=== PATIENT | female | born 1935 | race Caucasian/White ===

== ENCOUNTER 2016-11-10 16:51 | Emergency (ER) | payer MEDICARE, OTHER ==
[~2016-11-10] VITALS: Ht 167.6 cm; Wt 69.9 kg
[2016-11-10] MEDS ORDERED: DETR2CAP PO (17:12)
[2016-11-10] MEDS ORDERED: ASPI81TA85 PO (17:12)
[2016-11-10] MEDS ORDERED: FISH500C PO (17:12)
[2016-11-10] MEDS ORDERED: BIOT1CAP2 PO (17:12)
[2016-11-10] MEDS ORDERED: LISI30TA4 PO (17:12)
[2016-11-10] MEDS ORDERED: [UNRECOGNIZED DRUG - CODE] IM (17:12)
[2016-11-10] MEDS ORDERED: SIMV10TA2 PO (17:12)
[2016-11-10] MEDS ORDERED: LIDOCAINE 1% MDV 20ML VIAL As Ordered ONE (18:14)
[2016-11-10] MEDS ORDERED: LIDOCAINE 1% MDV 20ML VIAL SC ONE (18:30)
--- NOTE | 2016-11-10 19:28 | REP ---
RIGHT TIBIA/FIBULA: HISTORY: Pain after trauma. COMPARISON: 11/07/2015 There has been no significant change from the prior exam. Degenerative changes are seen involving the knee and ankle. There is no evidence of acute fracture. IMPRESSION: Stable chronic changes. Signed by Valdemar Henning DO 11/10/2016 07:38 P
[2016-11-10 19:58] VITALS: BP 146/67
== END 2016-11-10 20:00 | disposition home or self-care (01) ==
LOC: M ED 19:48
DX: S81.811A Laceration without foreign body, right lower leg, initial encounter (principal); X58.XXXA Exposure to other specified factors, initial encounter; Y92.099 Unspecified place in other non-institutional residence as the place of occurrence of the external cause; Y93.9 Activity, unspecified; Y99.9 Unspecified external cause status; I10 Essential (primary) hypertension; M94.20 Chondromalacia, unspecified site; E21.3 Hyperparathyroidism, unspecified; G25.81 Restless legs syndrome; Z79.82 Long term (current) use of aspirin; Z79.899 Other long term (current) drug therapy; Z88.1 Allergy status to other antibiotic agents

== ENCOUNTER 2021-08-17 16:10 | Inpatient (IN) | payer MEDICARE, OTHER ==
[~2021-08-17] VITALS: Ht 154.9 cm; Wt 47.6 kg
[~2021-08-17 16:10] MED LIST: ASPI81TA86 PO; BIOT1CAP2 PO; DETR2CAP PO; FISH500C PO; HEPARIN SOD (PORCINE) 5000UNITS/ML 1ML VIAL/SYRINGE SC SCH; LISI30TA4 PO; SIMV10TA21 PO; [UNRECOGNIZED DRUG - CODE] IM
[2021-08-17 18:13] LABS: BASO % 0.3 % (0.0-1.0); EOS # 0.1 10^3/uL (0.0-0.5); EOS % 0.7 % (0.0-3.0); HEMATOCRIT 46.2 % (36.0-47.0); HEMOGLOBIN 14.8 g/dl (12.0-15.5); LYMPH # 1.7 10^3/uL (1.5-5.0); LYMPH % 18.9 % (24.0-44.0); MEAN CORPUSCULAR HEMOGLOBIN 30.7 pg (27.0-33.0); MEAN CORPUSCULAR VOLUME 95.9 fl (80.0-96.0); MONO # 0.8 10^3/uL (0.0-0.8); MONO % 9.2 % (2.0-8.0); NEUTROPHILS # 6.2 10^3/uL (1.5-8.5); NEUTROPHILS % 70.3 % (36.0-66.0); PLATELET COUNT, AUTOMATED 399 10^3/uL (150-450); RED BLOOD COUNT 4.82 10^6/uL (4.00-5.40); WHITE BLOOD COUNT 8.9 10^3/uL (4.0-10.0)
[2021-08-17 18:28] LABS: CK-MB VALUE MASS 3.8 NG/ML (<3.6); MB/CK RELATIVE INDEX 7.31 (< OR =4)
[2021-08-17 18:37] LABS: ACETAMINOPHEN LEVEL < 2.0 UG/ML (10.0-30.0); ALBUMIN 3.1 GM/DL (3.2-5.2); ALT/SGPT 32 U/L (12-78); BILIRUBIN,DIRECT < 0.1 MG/DL (0.0-0.2); BILIRUBIN,TOTAL 0.2 MG/DL (0.2-1.0); BLOOD UREA NITROGEN 17 MG/DL (7-18); CALCIUM LEVEL 9.1 MG/DL (8.8-10.2); CARBON DIOXIDE LEVEL 31 MEQ/L (21-32); CHLORIDE LEVEL 106 MEQ/L (98-107); ETHYL ALCOHOL (ETHANOL) 0.003 % (0.000-0.010); GLOMERULAR FILTRATION RATE > 60.0 (>32); GLUCOSE, FASTING 56 MG/DL (70-100); POTASSIUM SERUM 4.5 MEQ/L (3.5-5.1); SALICYLATE LEVEL < 1.7 MG/DL (5.0-30.0); SODIUM LEVEL 141 MEQ/L (136-145); TOTAL PROTEIN 6.9 GM/DL (6.4-8.2)
[2021-08-17 18:48] LABS: AMPHETAMINES LEVEL URINE NEGATIVE (NEGATIVE); BARBITURATES URINE NEGATIVE (NEGATIVE); BENZODIAZEPINES URINE NEGATIVE (NEGATIVE); CANNABINOIDS URINE NEGATIVE (NEGATIVE); COCAINE METABOLITE URINE NEGATIVE (NEGATIVE); METHADONE URINE NEGATIVE (NEGATIVE); OPIATES URINE NEGATIVE (NEGATIVE); PHENCYCLIDINE URINE NEGATIVE (NEGATIVE)
[2021-08-17 19:28] LABS: OSMOLALITY SERUM 298 MOSM/KG (280-301)
[2021-08-17 19:47] LABS: RSV AMPLIFICATION NEGATIVE (NEGATIVE)
[2021-08-17] MEDS ORDERED: DEXTROSE 50% 50 ML SYRINGE IV STA (20:03)
[2021-08-17] MEDS ORDERED: NS 1,000 ML IV ONE (20:10)
[2021-08-17] MEDS: cefTRIAXone SOD 1 GM in D5W MINI-BAG PLUS 50 ML IV SCH (20:17)
[2021-08-17] MEDS ORDERED: OLANZapine INTRAMUSCULAR 10MG VIAL IM PRN (21:50)
[2021-08-17] MEDS ORDERED: NS 1,000 ML IV SCH (22:20)
[2021-08-17 23:00] LABS: FREE T4 0.82 NG/DL (0.76-1.46)
[2021-08-18] VITALS: BP 141/80
[2021-08-18 06:00] VITALS: BP 148/82
[2021-08-18 07:01] LABS: BLOOD UREA NITROGEN 16 MG/DL (7-18); GLUCOSE, FASTING 65 MG/DL (70-100)
[2021-08-18 07:02] LABS: CALCIUM LEVEL 8.4 MG/DL (8.8-10.2); CARBON DIOXIDE LEVEL 31 MEQ/L (21-32); CHLORIDE LEVEL 109 MEQ/L (98-107); GLOMERULAR FILTRATION RATE > 60.0 (>32); POTASSIUM SERUM 4.7 MEQ/L (3.5-5.1); SODIUM LEVEL 142 MEQ/L (136-145)
[2021-08-18] MEDS ORDERED: ERGO500029 PO (07:46)
[2021-08-18] MEDS ORDERED: LISI10TA22 PO (07:46)
[2021-08-18] MEDS ORDERED: MED REC COMMENT (07:47)
[2021-08-18] MEDS ORDERED: HOME MED LIST COMPLETE! XX SCH (07:50)
[2021-08-18] MEDS: DOCUSATE SODIUM 100MG CAPSULE PO SCH ×2 (09:53→19:59)
[2021-08-18] MEDS: HEPARIN SOD (PORCINE) 5000UNITS/ML 1ML VIAL/SYRINGE SC SCH ×2 (09:54→19:59)
[2021-08-18] MEDS: ACETAMINOPHEN TAB 650MG DOSE (2X325MG) PO PRN (09:56)
[2021-08-18] MEDS ORDERED: VANCOMYCIN HCL 1,000 MG, VIAL MATE ADAPTER 1 EACH in NS 250 ML IV ONE (12:00)
[2021-08-18 14:00] VITALS: BP 138/92
[2021-08-18] MEDS: VANCOMYCIN HCL 500 MG in D5W MINI-BAG PLUS 100 ML IV SCH (19:30)
[2021-08-18] MEDS: cefTRIAXone SOD 1 GM in D5W MINI-BAG PLUS 50 ML IV SCH (20:50)
[2021-08-18 22:00] VITALS: BP 146/81
[2021-08-19 06:00] VITALS: BP 155/73
[2021-08-19 07:23] LABS: HEMATOCRIT 38.6 % (36.0-47.0); MEAN CORPUSCULAR HEMOGLOBIN 30.9 pg (27.0-33.0); MEAN CORPUSCULAR HGB CONC 32.6 g/dl (32.0-36.5); MEAN CORPUSCULAR VOLUME 94.6 fl (80.0-96.0); PLATELET COUNT, AUTOMATED 318 10^3/uL (150-450); RED BLOOD COUNT 4.08 10^6/uL (4.00-5.40); WHITE BLOOD COUNT 10.3 10^3/uL (4.0-10.0)
[2021-08-19 07:26] LABS: HEMOGLOBIN 12.6 g/dl (12.0-15.5)
[2021-08-19 07:43] LABS: BLOOD UREA NITROGEN 18 MG/DL (7-18); CALCIUM LEVEL 8.4 MG/DL (8.8-10.2); CARBON DIOXIDE LEVEL 30 MEQ/L (21-32); CHLORIDE LEVEL 110 MEQ/L (98-107); CREATININE FOR GFR 0.67 MG/DL (0.55-1.30); GLOMERULAR FILTRATION RATE > 60.0 (>32); GLUCOSE, FASTING 72 MG/DL (70-100); POTASSIUM SERUM 4.5 MEQ/L (3.5-5.1); SODIUM LEVEL 143 MEQ/L (136-145)
[2021-08-19] MEDS: VANCOMYCIN HCL 500 MG in D5W MINI-BAG PLUS 100 ML IV SCH (08:11)
[2021-08-19] MEDS: HEPARIN SOD (PORCINE) 5000UNITS/ML 1ML VIAL/SYRINGE SC SCH ×2 (08:11→21:15)
[2021-08-19] MEDS: DOCUSATE SODIUM 100MG CAPSULE PO SCH ×2 (08:14→21:15)
[2021-08-19] MEDS ORDERED: VANCOMYCIN HCL 500 MG in D5W MINI-BAG PLUS 100 ML IV ONE (09:00)
[2021-08-19 14:00] VITALS: BP 144/76
[2021-08-19] MEDS: cefTRIAXone SOD 1 GM in D5W MINI-BAG PLUS 50 ML IV SCH (21:23)
[2021-08-19] MEDS: ACETAMINOPHEN TAB 650MG DOSE (2X325MG) PO PRN (21:47)
[2021-08-19 22:00] VITALS: BP 103/59
[2021-08-20 06:00] VITALS: BP 148/72
[2021-08-20 08:29] LABS: BASO % 0.4 % (0.0-1.0); EOS # 0.1 10^3/uL (0.0-0.5); EOS % 1.9 % (0.0-3.0); HEMATOCRIT 37.1 % (36.0-47.0); HEMOGLOBIN 12.4 g/dl (12.0-15.5); LYMPH # 1.9 10^3/uL (1.5-5.0); LYMPH % 27.8 % (24.0-44.0); MEAN CORPUSCULAR HEMOGLOBIN 31.3 pg (27.0-33.0); MEAN CORPUSCULAR HGB CONC 33.4 g/dl (32.0-36.5); MEAN CORPUSCULAR VOLUME 93.7 fl (80.0-96.0); MONO # 0.8 10^3/uL (0.0-0.8); MONO % 10.9 % (2.0-8.0); NEUTROPHILS # 4.1 10^3/uL (1.5-8.5); NEUTROPHILS % 58.4 % (36.0-66.0); PLATELET COUNT, AUTOMATED 305 10^3/uL (150-450); RED BLOOD COUNT 3.96 10^6/uL (4.00-5.40)
[2021-08-20 08:49] LABS: VANCOMYCIN LEVEL TROUGH 15.7 UG/ML (10.0-20.0)
[2021-08-20] MEDS ORDERED: VANCOMYCIN HCL 1,000 MG, VIAL MATE ADAPTER 1 EACH in NS 250 ML IV SCH (09:00)
[2021-08-20 09:02] LABS: BLOOD UREA NITROGEN 14 MG/DL (7-18); CALCIUM LEVEL 8.8 MG/DL (8.8-10.2); CARBON DIOXIDE LEVEL 30 MEQ/L (21-32); CHLORIDE LEVEL 111 MEQ/L (98-107); GLOMERULAR FILTRATION RATE > 60.0 (>32); GLUCOSE, FASTING 74 MG/DL (70-100); POTASSIUM SERUM 4.4 MEQ/L (3.5-5.1); SODIUM LEVEL 144 MEQ/L (136-145)
[2021-08-20] MEDS: DOCUSATE SODIUM 100MG CAPSULE PO SCH ×2 (09:12→20:31)
[2021-08-20] MEDS: HEPARIN SOD (PORCINE) 5000UNITS/ML 1ML VIAL/SYRINGE SC SCH ×2 (09:12→20:31)
[2021-08-20 14:00] VITALS: BP 119/72
[2021-08-20 17:04] LABS: C REACTIVE PROTEIN QUANTITATIV 2.19 MG/DL (0.00-0.30)
[2021-08-20] MEDS: ceFAZolin SOD 2 GM in IV 1 EA IV SCH (18:21)
[2021-08-20] MEDS: GASTROGRAFIN SOLUTION 30ML PO SCH ×2 (18:21→18:55)
[2021-08-20] MEDS ORDERED: ISOVUE-370 76% 100ML VIAL As Ordered ONE (19:30)
[2021-08-20] MEDS: CLOTRIMAZOLE 1% TOPICAL CREAM 30GM TOP SCH (20:32)
[2021-08-20 22:00] VITALS: BP 166/78
[2021-08-21] MEDS: ceFAZolin SOD 2 GM in IV 1 EA IV SCH ×3 (02:11→18:04)
[2021-08-21 06:00] VITALS: BP 124/78
[2021-08-21 08:14] LABS: HEMATOCRIT 37.9 % (36.0-47.0); HEMOGLOBIN 12.4 g/dl (12.0-15.5); MEAN CORPUSCULAR HEMOGLOBIN 30.8 pg (27.0-33.0); MEAN CORPUSCULAR HGB CONC 32.7 g/dl (32.0-36.5); PLATELET COUNT, AUTOMATED 332 10^3/uL (150-450); RED BLOOD COUNT 4.03 10^6/uL (4.00-5.40); WHITE BLOOD COUNT 7.5 10^3/uL (4.0-10.0)
[2021-08-21 08:33] LABS: BLOOD UREA NITROGEN 17 MG/DL (7-18); CALCIUM LEVEL 8.7 MG/DL (8.8-10.2); CARBON DIOXIDE LEVEL 29 MEQ/L (21-32); CHLORIDE LEVEL 108 MEQ/L (98-107); GLOMERULAR FILTRATION RATE > 60.0 (>32); GLUCOSE, FASTING 81 MG/DL (70-100); POTASSIUM SERUM 4.3 MEQ/L (3.5-5.1); SODIUM LEVEL 140 MEQ/L (136-145)
[2021-08-21 08:39] LABS: ERYTHROCYTE SEDIMENTATION RATE 47 mm/hr (0-30)
[2021-08-21] MEDS: DOCUSATE SODIUM 100MG CAPSULE PO SCH ×2 (08:40→20:34)
[2021-08-21] MEDS: SENNA 8.6 MG TAB (SENOKOT) PO SCH ×2 (08:41→20:01)
[2021-08-21] MEDS: HEPARIN SOD (PORCINE) 5000UNITS/ML 1ML VIAL/SYRINGE SC SCH ×2 (08:41→20:35)
[2021-08-21] MEDS: DIMETHICONE 2% OINTMENT(VANICREAM) 70GM TUBE TOP SCH (08:41)
[2021-08-21] MEDS: CLOTRIMAZOLE 1% TOPICAL CREAM 30GM TOP SCH (08:42)
[2021-08-21 14:00] VITALS: BP 119/70
[2021-08-21 22:00] VITALS: BP 130/64
[2021-08-22] MEDS: ceFAZolin SOD 2 GM in IV 1 EA IV SCH ×3 (01:29→17:28)
[2021-08-22 05:59] LABS: HEMATOCRIT 37.7 % (36.0-47.0); HEMOGLOBIN 12.3 g/dl (12.0-15.5); MEAN CORPUSCULAR HGB CONC 32.6 g/dl (32.0-36.5); PLATELET COUNT, AUTOMATED 314 10^3/uL (150-450); RED BLOOD COUNT 3.97 10^6/uL (4.00-5.40); WHITE BLOOD COUNT 6.1 10^3/uL (4.0-10.0)
[2021-08-22 06:00] VITALS: BP 157/82
[2021-08-22 06:18] LABS: BLOOD UREA NITROGEN 17 MG/DL (7-18); CALCIUM LEVEL 8.9 MG/DL (8.8-10.2); CARBON DIOXIDE LEVEL 33 MEQ/L (21-32); CHLORIDE LEVEL 107 MEQ/L (98-107); CREATININE FOR GFR 0.67 MG/DL (0.55-1.30); GLOMERULAR FILTRATION RATE > 60.0 (>32); GLUCOSE, FASTING 71 MG/DL (70-100); POTASSIUM SERUM 4.2 MEQ/L (3.5-5.1); SODIUM LEVEL 143 MEQ/L (136-145)
[2021-08-22] MEDS: SENNA 8.6 MG TAB (SENOKOT) PO SCH ×2 (08:35→20:25)
[2021-08-22] MEDS: HEPARIN SOD (PORCINE) 5000UNITS/ML 1ML VIAL/SYRINGE SC SCH ×2 (08:35→20:29)
[2021-08-22] MEDS: DOCUSATE SODIUM 100MG CAPSULE PO SCH ×2 (08:35→20:25)
[2021-08-22] MEDS: DIMETHICONE 2% OINTMENT(VANICREAM) 70GM TUBE TOP SCH (08:36)
[2021-08-22] MEDS: CLOTRIMAZOLE 1% TOPICAL CREAM 30GM TOP SCH (08:36)
[2021-08-22 14:00] VITALS: BP 141/89
[2021-08-22 22:00] VITALS: BP 150/68
[2021-08-23] MEDS: ceFAZolin SOD 2 GM in IV 1 EA IV SCH ×3 (01:21→17:24)
[2021-08-23 05:54] LABS: HEMATOCRIT 37.7 % (36.0-47.0); HEMOGLOBIN 12.1 g/dl (12.0-15.5); MEAN CORPUSCULAR HEMOGLOBIN 30.6 pg (27.0-33.0); MEAN CORPUSCULAR HGB CONC 32.1 g/dl (32.0-36.5); MEAN CORPUSCULAR VOLUME 95.4 fl (80.0-96.0); PLATELET COUNT, AUTOMATED 302 10^3/uL (150-450); RED BLOOD COUNT 3.95 10^6/uL (4.00-5.40); WHITE BLOOD COUNT 5.3 10^3/uL (4.0-10.0)
[2021-08-23 06:00] VITALS: BP 134/74
[2021-08-23 06:14] LABS: BLOOD UREA NITROGEN 17 MG/DL (7-18); CALCIUM LEVEL 8.6 MG/DL (8.8-10.2); CARBON DIOXIDE LEVEL 33 MEQ/L (21-32); CHLORIDE LEVEL 106 MEQ/L (98-107); CREATININE FOR GFR 0.75 MG/DL (0.55-1.30); GLOMERULAR FILTRATION RATE > 60.0 (>32); GLUCOSE, FASTING 75 MG/DL (70-100); POTASSIUM SERUM 4.4 MEQ/L (3.5-5.1); SODIUM LEVEL 141 MEQ/L (136-145)
[2021-08-23] MEDS: SENNA 8.6 MG TAB (SENOKOT) PO SCH ×2 (09:00→19:59)
[2021-08-23] MEDS: DOCUSATE SODIUM 100MG CAPSULE PO SCH ×2 (09:00→19:59)
[2021-08-23] MEDS: DIMETHICONE 2% OINTMENT(VANICREAM) 70GM TUBE TOP SCH (09:32)
[2021-08-23] MEDS: CLOTRIMAZOLE 1% TOPICAL CREAM 30GM TOP SCH (09:32)
[2021-08-23] MEDS: HEPARIN SOD (PORCINE) 5000UNITS/ML 1ML VIAL/SYRINGE SC SCH ×2 (09:32→20:05)
[2021-08-23 14:00] VITALS: BP 112/70
[2021-08-23 22:00] VITALS: BP 123/58
[2021-08-24] MEDS: ceFAZolin SOD 2 GM in IV 1 EA IV SCH ×3 (01:27→17:41)
[2021-08-24 06:00] VITALS: BP 136/79
[2021-08-24 06:24] LABS: HEMATOCRIT 37.1 % (36.0-47.0); HEMOGLOBIN 11.9 g/dl (12.0-15.5); MEAN CORPUSCULAR HEMOGLOBIN 30.7 pg (27.0-33.0); MEAN CORPUSCULAR HGB CONC 32.1 g/dl (32.0-36.5); MEAN CORPUSCULAR VOLUME 95.6 fl (80.0-96.0); PLATELET COUNT, AUTOMATED 327 10^3/uL (150-450); RED BLOOD COUNT 3.88 10^6/uL (4.00-5.40); WHITE BLOOD COUNT 5.1 10^3/uL (4.0-10.0)
[2021-08-24 06:52] LABS: BLOOD UREA NITROGEN 21 MG/DL (7-18); CALCIUM LEVEL 8.6 MG/DL (8.8-10.2); CARBON DIOXIDE LEVEL 34 MEQ/L (21-32); CHLORIDE LEVEL 107 MEQ/L (98-107); CREATININE FOR GFR 0.78 MG/DL (0.55-1.30); GLOMERULAR FILTRATION RATE > 60.0 (>32); GLUCOSE, FASTING 75 MG/DL (70-100); MAGNESIUM LEVEL 2.1 MG/DL (1.8-2.4); POTASSIUM SERUM 4.5 MEQ/L (3.5-5.1); SODIUM LEVEL 144 MEQ/L (136-145)
[2021-08-24] MEDS: SENNA 8.6 MG TAB (SENOKOT) PO SCH ×2 (09:00→22:28)
[2021-08-24] MEDS: CLOTRIMAZOLE 1% TOPICAL CREAM 30GM TOP SCH (09:03)
[2021-08-24] MEDS: DIMETHICONE 2% OINTMENT(VANICREAM) 70GM TUBE TOP SCH (09:03)
[2021-08-24] MEDS: DOCUSATE SODIUM 100MG CAPSULE PO SCH ×2 (09:04→22:28)
[2021-08-24] MEDS: HEPARIN SOD (PORCINE) 5000UNITS/ML 1ML VIAL/SYRINGE SC SCH ×2 (09:04→22:28)
[2021-08-24] MEDS ORDERED: FLEET ENEMA PR PRN (13:30)
[2021-08-24 14:00] VITALS: BP 114/59
[2021-08-24 22:00] VITALS: BP 147/75
[2021-08-24] MEDS: RAMELTEON 8 MG TAB (ROZEREM) PO PRN (22:31)
[2021-08-25] MEDS: ceFAZolin SOD 2 GM in IV 1 EA IV SCH ×3 (02:18→18:25)
[2021-08-25 06:00] VITALS: BP 149/77
[2021-08-25 06:26] LABS: HEMATOCRIT 36.7 % (36.0-47.0); MEAN CORPUSCULAR HEMOGLOBIN 31.3 pg (27.0-33.0); MEAN CORPUSCULAR HGB CONC 32.7 g/dl (32.0-36.5); MEAN CORPUSCULAR VOLUME 95.6 fl (80.0-96.0); PLATELET COUNT, AUTOMATED 338 10^3/uL (150-450); RED BLOOD COUNT 3.84 10^6/uL (4.00-5.40); WHITE BLOOD COUNT 5.2 10^3/uL (4.0-10.0)
[2021-08-25 06:51] LABS: BLOOD UREA NITROGEN 21 MG/DL (7-18); CALCIUM LEVEL 8.5 MG/DL (8.8-10.2); CARBON DIOXIDE LEVEL 31 MEQ/L (21-32); CHLORIDE LEVEL 109 MEQ/L (98-107); CREATININE FOR GFR 0.66 MG/DL (0.55-1.30); GLOMERULAR FILTRATION RATE > 60.0 (>32); GLUCOSE, FASTING 78 MG/DL (70-100); MAGNESIUM LEVEL 2.1 MG/DL (1.8-2.4); SODIUM LEVEL 144 MEQ/L (136-145)
[2021-08-25 07:19] LABS: ERYTHROCYTE SEDIMENTATION RATE 35 mm/hr (0-30)
[2021-08-25] MEDS: SENNA 8.6 MG TAB (SENOKOT) PO SCH ×2 (10:29→21:13)
[2021-08-25] MEDS: DOCUSATE SODIUM 100MG CAPSULE PO SCH ×2 (10:29→21:13)
[2021-08-25] MEDS: DIMETHICONE 2% OINTMENT(VANICREAM) 70GM TUBE TOP SCH (10:30)
[2021-08-25] MEDS: CLOTRIMAZOLE 1% TOPICAL CREAM 30GM TOP SCH (10:30)
[2021-08-25] MEDS: HEPARIN SOD (PORCINE) 5000UNITS/ML 1ML VIAL/SYRINGE SC SCH ×2 (10:32→21:13)
[2021-08-25] MEDS: RAMELTEON 8 MG TAB (ROZEREM) PO PRN (21:13)
[2021-08-25] MEDS ORDERED: BISACODYL 10 MG SUPP PR ONE (22:00)
[2021-08-26] MEDS: ceFAZolin SOD 2 GM in IV 1 EA IV SCH ×3 (02:09→19:54)
[2021-08-26 06:00] VITALS: BP 139/86
[2021-08-26 06:18] LABS: HEMATOCRIT 37.6 % (36.0-47.0); MEAN CORPUSCULAR HEMOGLOBIN 30.5 pg (27.0-33.0); MEAN CORPUSCULAR HGB CONC 31.9 g/dl (32.0-36.5); MEAN CORPUSCULAR VOLUME 95.7 fl (80.0-96.0); PLATELET COUNT, AUTOMATED 343 10^3/uL (150-450); RED BLOOD COUNT 3.93 10^6/uL (4.00-5.40); WHITE BLOOD COUNT 5.5 10^3/uL (4.0-10.0)
[2021-08-26 06:45] LABS: BLOOD UREA NITROGEN 20 MG/DL (7-18); CALCIUM LEVEL 8.8 MG/DL (8.8-10.2); CARBON DIOXIDE LEVEL 30 MEQ/L (21-32); CHLORIDE LEVEL 107 MEQ/L (98-107); CREATININE FOR GFR 0.62 MG/DL (0.55-1.30); GLOMERULAR FILTRATION RATE > 60.0 (>32); GLUCOSE, FASTING 83 MG/DL (70-100); MAGNESIUM LEVEL 2.1 MG/DL (1.8-2.4); POTASSIUM SERUM 4.4 MEQ/L (3.5-5.1); SODIUM LEVEL 140 MEQ/L (136-145)
[2021-08-26 09:00] VITALS: BP 138/85
[2021-08-26] MEDS: CLOTRIMAZOLE 1% TOPICAL CREAM 30GM TOP SCH (09:00)
[2021-08-26] MEDS: DIMETHICONE 2% OINTMENT(VANICREAM) 70GM TUBE TOP SCH (09:00)
[2021-08-26] MEDS: HEPARIN SOD (PORCINE) 5000UNITS/ML 1ML VIAL/SYRINGE SC SCH (10:18)
[2021-08-26] MEDS: SENNA 8.6 MG TAB (SENOKOT) PO SCH (10:18)
[2021-08-26] MEDS: DOCUSATE SODIUM 100MG CAPSULE PO SCH (10:18)
[2021-08-26 14:00] VITALS: BP 111/73
[2021-08-26] MEDS ORDERED: LIDOCAINE VISCOUS 2% SOLN 15ML UDC As Ordered ONE (17:39)
[2021-08-26] MEDS ORDERED: CETACAINE SPRAY 5GM As Ordered ONE (17:39)
[2021-08-26] MEDS ORDERED: propofoL 200 MG/20 ML VIAL As Ordered ONE (17:51)
[2021-08-26] MEDS ORDERED: LIDOCAINE 2% 100MG/5ML SDV (FOR ANES.) As Ordered ONE (17:51)
[2021-08-26] MEDS ORDERED: LR 1,000 ML IV SCH (18:50)
[2021-08-26] MEDS ORDERED: ONDANSETRON 4MG/2ML VIAL IV PRN (18:50)
[2021-08-26 22:00] VITALS: BP 118/70
[2021-08-27] MEDS: SENNA 8.6 MG TAB (SENOKOT) PO SCH ×3 (00:44→21:11)
[2021-08-27] MEDS: DOCUSATE SODIUM 100MG CAPSULE PO SCH ×3 (00:44→21:11)
[2021-08-27] MEDS: HEPARIN SOD (PORCINE) 5000UNITS/ML 1ML VIAL/SYRINGE SC SCH ×3 (00:44→21:11)
[2021-08-27] MEDS: ceFAZolin SOD 2 GM in IV 1 EA IV SCH ×3 (02:52→18:11)
[2021-08-27 06:00] VITALS: BP 129/75
[2021-08-27 06:21] LABS: HEMOGLOBIN 12.6 g/dl (12.0-15.5); MEAN CORPUSCULAR HEMOGLOBIN 30.7 pg (27.0-33.0); MEAN CORPUSCULAR HGB CONC 32.3 g/dl (32.0-36.5); MEAN CORPUSCULAR VOLUME 95.1 fl (80.0-96.0); PLATELET COUNT, AUTOMATED 372 10^3/uL (150-450); WHITE BLOOD COUNT 14.9 10^3/uL (4.0-10.0)
[2021-08-27 06:44] LABS: BLOOD UREA NITROGEN 20 MG/DL (7-18); CALCIUM LEVEL 9.1 MG/DL (8.8-10.2); CARBON DIOXIDE LEVEL 28 MEQ/L (21-32); CHLORIDE LEVEL 105 MEQ/L (98-107); CREATININE FOR GFR 0.65 MG/DL (0.55-1.30); GLOMERULAR FILTRATION RATE > 60.0 (>32); GLUCOSE, FASTING 86 MG/DL (70-100); SODIUM LEVEL 141 MEQ/L (136-145)
[2021-08-27] MEDS: DIMETHICONE 2% OINTMENT(VANICREAM) 70GM TUBE TOP SCH (08:18)
[2021-08-27] MEDS: CLOTRIMAZOLE 1% TOPICAL CREAM 30GM TOP SCH (08:18)
[2021-08-27 14:00] VITALS: BP 93/51
[2021-08-27 18:42] VITALS: BP 106/72
[2021-08-27 22:00] VITALS: BP 107/57
[2021-08-28] MEDS: ceFAZolin SOD 2 GM in IV 1 EA IV SCH ×3 (02:26→17:18)
[2021-08-28] MEDS: RAMELTEON 8 MG TAB (ROZEREM) PO PRN ×2 (03:30→22:37)
[2021-08-28 06:00] VITALS: BP 136/67
[2021-08-28 06:35] LABS: HEMATOCRIT 35.2 % (36.0-47.0); HEMOGLOBIN 11.5 g/dl (12.0-15.5); MEAN CORPUSCULAR HEMOGLOBIN 30.9 pg (27.0-33.0); MEAN CORPUSCULAR HGB CONC 32.7 g/dl (32.0-36.5); MEAN CORPUSCULAR VOLUME 94.6 fl (80.0-96.0); PLATELET COUNT, AUTOMATED 343 10^3/uL (150-450); RED BLOOD COUNT 3.72 10^6/uL (4.00-5.40); WHITE BLOOD COUNT 7.2 10^3/uL (4.0-10.0)
[2021-08-28 06:50] LABS: BLOOD UREA NITROGEN 18 MG/DL (7-18); CALCIUM LEVEL 8.5 MG/DL (8.8-10.2); CARBON DIOXIDE LEVEL 31 MEQ/L (21-32); CHLORIDE LEVEL 108 MEQ/L (98-107); CREATININE FOR GFR 0.64 MG/DL (0.55-1.30); GLOMERULAR FILTRATION RATE > 60.0 (>32); GLUCOSE, FASTING 83 MG/DL (70-100); POTASSIUM SERUM 3.9 MEQ/L (3.5-5.1); SODIUM LEVEL 143 MEQ/L (136-145)
[2021-08-28] MEDS: HEPARIN SOD (PORCINE) 5000UNITS/ML 1ML VIAL/SYRINGE SC SCH ×2 (08:43→22:37)
[2021-08-28] MEDS: CLOTRIMAZOLE 1% TOPICAL CREAM 30GM TOP SCH (08:43)
[2021-08-28] MEDS: DOCUSATE SODIUM 100MG CAPSULE PO SCH (08:43)
[2021-08-28] MEDS: SENNA 8.6 MG TAB (SENOKOT) PO SCH ×2 (08:43→22:36)
[2021-08-28] MEDS: DIMETHICONE 2% OINTMENT(VANICREAM) 70GM TUBE TOP SCH (08:44)
[2021-08-28] MEDS: LACTOBACILLUS ACIDOPHILUS CAP (BACID) PO SCH ×2 (10:36→17:18)
[2021-08-28 14:00] VITALS: BP 123/64
[2021-08-29] MEDS: ceFAZolin SOD 2 GM in IV 1 EA IV SCH ×3 (02:53→17:43)
[2021-08-29 06:00] VITALS: BP 146/73
[2021-08-29 07:13] LABS: HEMATOCRIT 33.8 % (36.0-47.0); HEMOGLOBIN 11.1 g/dl (12.0-15.5); MEAN CORPUSCULAR HEMOGLOBIN 30.8 pg (27.0-33.0); MEAN CORPUSCULAR HGB CONC 32.8 g/dl (32.0-36.5); MEAN CORPUSCULAR VOLUME 93.9 fl (80.0-96.0); PLATELET COUNT, AUTOMATED 349 10^3/uL (150-450); WHITE BLOOD COUNT 5.9 10^3/uL (4.0-10.0)
[2021-08-29 07:39] LABS: BLOOD UREA NITROGEN 17 MG/DL (7-18); CALCIUM LEVEL 8.5 MG/DL (8.8-10.2); CARBON DIOXIDE LEVEL 31 MEQ/L (21-32); CHLORIDE LEVEL 107 MEQ/L (98-107); CREATININE FOR GFR 0.59 MG/DL (0.55-1.30); GLOMERULAR FILTRATION RATE > 60.0 (>32); GLUCOSE, FASTING 76 MG/DL (70-100); POTASSIUM SERUM 4.1 MEQ/L (3.5-5.1); SODIUM LEVEL 140 MEQ/L (136-145)
[2021-08-29 07:59] LABS: CK-MB VALUE MASS < 1.0 NG/ML (<3.6); CPK CREATINE PHOSPHOKINASE 25 U/L (26-192)
[2021-08-29] MEDS: HEPARIN SOD (PORCINE) 5000UNITS/ML 1ML VIAL/SYRINGE SC SCH ×2 (09:19→21:26)
[2021-08-29] MEDS: LACTOBACILLUS ACIDOPHILUS CAP (BACID) PO SCH ×2 (09:19→17:43)
[2021-08-29] MEDS: SENNA 8.6 MG TAB (SENOKOT) PO SCH ×2 (09:19→21:26)
[2021-08-29] MEDS: DIMETHICONE 2% OINTMENT(VANICREAM) 70GM TUBE TOP SCH (09:19)
[2021-08-29] MEDS: CLOTRIMAZOLE 1% TOPICAL CREAM 30GM TOP SCH (09:20)
[2021-08-29] MEDS: RAMELTEON 8 MG TAB (ROZEREM) PO PRN (21:26)
[2021-08-30] MEDS: ceFAZolin SOD 2 GM in IV 1 EA IV SCH ×3 (03:20→17:50)
[2021-08-30 06:00] VITALS: BP 169/71
[2021-08-30 06:32] LABS: HEMATOCRIT 34.1 % (36.0-47.0); HEMOGLOBIN 11.2 g/dl (12.0-15.5); MEAN CORPUSCULAR HGB CONC 32.8 g/dl (32.0-36.5); MEAN CORPUSCULAR VOLUME 94.5 fl (80.0-96.0); PLATELET COUNT, AUTOMATED 353 10^3/uL (150-450); RED BLOOD COUNT 3.61 10^6/uL (4.00-5.40); WHITE BLOOD COUNT 6.5 10^3/uL (4.0-10.0)
[2021-08-30 07:01] LABS: BLOOD UREA NITROGEN 18 MG/DL (7-18); CALCIUM LEVEL 8.4 MG/DL (8.8-10.2); CARBON DIOXIDE LEVEL 29 MEQ/L (21-32); CHLORIDE LEVEL 109 MEQ/L (98-107); CREATININE FOR GFR 0.68 MG/DL (0.55-1.30); GLOMERULAR FILTRATION RATE > 60.0 (>32); GLUCOSE, FASTING 74 MG/DL (70-100); POTASSIUM SERUM 4.2 MEQ/L (3.5-5.1); SODIUM LEVEL 142 MEQ/L (136-145)
[2021-08-30] MEDS: HEPARIN SOD (PORCINE) 5000UNITS/ML 1ML VIAL/SYRINGE SC SCH ×2 (07:58→20:57)
[2021-08-30] MEDS: LACTOBACILLUS ACIDOPHILUS CAP (BACID) PO SCH ×2 (07:58→17:50)
[2021-08-30] MEDS: SENNA 8.6 MG TAB (SENOKOT) PO SCH ×2 (07:58→21:00)
[2021-08-30] MEDS: CLOTRIMAZOLE 1% TOPICAL CREAM 30GM TOP SCH (07:58)
[2021-08-30] MEDS: DIMETHICONE 2% OINTMENT(VANICREAM) 70GM TUBE TOP SCH (07:59)
[2021-08-31] MEDS: ceFAZolin SOD 2 GM in IV 1 EA IV SCH ×3 (02:15→17:42)
[2021-08-31 05:15] VITALS: BP 120/80
[2021-08-31 06:40] LABS: HEMATOCRIT 36.8 % (36.0-47.0); HEMOGLOBIN 12.1 g/dl (12.0-15.5); MEAN CORPUSCULAR HEMOGLOBIN 31.2 pg (27.0-33.0); MEAN CORPUSCULAR HGB CONC 32.9 g/dl (32.0-36.5); MEAN CORPUSCULAR VOLUME 94.8 fl (80.0-96.0); PLATELET COUNT, AUTOMATED 357 10^3/uL (150-450); RED BLOOD COUNT 3.88 10^6/uL (4.00-5.40); WHITE BLOOD COUNT 11.7 10^3/uL (4.0-10.0)
[2021-08-31 07:12] LABS: BLOOD UREA NITROGEN 14 MG/DL (7-18); CALCIUM LEVEL 8.4 MG/DL (8.8-10.2); CARBON DIOXIDE LEVEL 31 MEQ/L (21-32); CHLORIDE LEVEL 110 MEQ/L (98-107); CREATININE FOR GFR 0.62 MG/DL (0.55-1.30); GLOMERULAR FILTRATION RATE > 60.0 (>32); GLUCOSE, FASTING 81 MG/DL (70-100); POTASSIUM SERUM 4.1 MEQ/L (3.5-5.1); SODIUM LEVEL 144 MEQ/L (136-145)
[2021-08-31] MEDS: SENNA 8.6 MG TAB (SENOKOT) PO SCH ×2 (09:00→20:01)
[2021-08-31] MEDS: DIMETHICONE 2% OINTMENT(VANICREAM) 70GM TUBE TOP SCH (10:00)
[2021-08-31] MEDS: HEPARIN SOD (PORCINE) 5000UNITS/ML 1ML VIAL/SYRINGE SC SCH ×2 (10:00→20:02)
[2021-08-31] MEDS: CLOTRIMAZOLE 1% TOPICAL CREAM 30GM TOP SCH (10:00)
[2021-08-31] MEDS: LACTOBACILLUS ACIDOPHILUS CAP (BACID) PO SCH ×2 (10:00→17:42)
[2021-08-31] MEDS: RAMELTEON 8 MG TAB (ROZEREM) PO PRN (21:39)
[2021-09-01] MEDS: ceFAZolin SOD 2 GM in IV 1 EA IV SCH ×3 (02:46→18:16)
[2021-09-01 06:00] VITALS: BP 122/61
[2021-09-01 06:43] LABS: HEMATOCRIT 35.1 % (36.0-47.0); HEMOGLOBIN 11.5 g/dl (12.0-15.5); MEAN CORPUSCULAR HEMOGLOBIN 31.3 pg (27.0-33.0); MEAN CORPUSCULAR HGB CONC 32.8 g/dl (32.0-36.5); MEAN CORPUSCULAR VOLUME 95.4 fl (80.0-96.0); PLATELET COUNT, AUTOMATED 366 10^3/uL (150-450); RED BLOOD COUNT 3.68 10^6/uL (4.00-5.40); WHITE BLOOD COUNT 6.9 10^3/uL (4.0-10.0)
[2021-09-01 07:04] LABS: BLOOD UREA NITROGEN 12 MG/DL (7-18); CALCIUM LEVEL 8.7 MG/DL (8.8-10.2); CARBON DIOXIDE LEVEL 32 MEQ/L (21-32); CHLORIDE LEVEL 109 MEQ/L (98-107); CREATININE FOR GFR 0.58 MG/DL (0.55-1.30); GLOMERULAR FILTRATION RATE > 60.0 (>32); GLUCOSE, FASTING 75 MG/DL (70-100); POTASSIUM SERUM 3.9 MEQ/L (3.5-5.1); SODIUM LEVEL 142 MEQ/L (136-145)
[2021-09-01] MEDS: LACTOBACILLUS ACIDOPHILUS CAP (BACID) PO SCH ×2 (10:12→18:16)
[2021-09-01] MEDS: SENNA 8.6 MG TAB (SENOKOT) PO SCH ×2 (10:13→19:18)
[2021-09-01] MEDS: HEPARIN SOD (PORCINE) 5000UNITS/ML 1ML VIAL/SYRINGE SC SCH ×2 (10:13→20:20)
[2021-09-01] MEDS: DIMETHICONE 2% OINTMENT(VANICREAM) 70GM TUBE TOP SCH (10:14)
[2021-09-01] MEDS: CLOTRIMAZOLE 1% TOPICAL CREAM 30GM TOP SCH (10:15)
[2021-09-01] MEDS: RAMELTEON 8 MG TAB (ROZEREM) PO PRN (21:25)
[2021-09-02] MEDS: ceFAZolin SOD 2 GM in IV 1 EA IV SCH ×2 (02:03→09:00)
[2021-09-02 06:00] VITALS: BP 138/66
[2021-09-02] MEDS: LACTOBACILLUS ACIDOPHILUS CAP (BACID) PO SCH ×2 (08:57→18:34)
[2021-09-02] MEDS: SENNA 8.6 MG TAB (SENOKOT) PO SCH ×2 (08:58→20:13)
[2021-09-02] MEDS: DIMETHICONE 2% OINTMENT(VANICREAM) 70GM TUBE TOP SCH (08:59)
[2021-09-02] MEDS: HEPARIN SOD (PORCINE) 5000UNITS/ML 1ML VIAL/SYRINGE SC SCH ×2 (08:59→20:13)
[2021-09-02] MEDS: CLOTRIMAZOLE 1% TOPICAL CREAM 30GM TOP SCH (09:00)
[2021-09-02] MEDS: RAMELTEON 8 MG TAB (ROZEREM) PO PRN (20:13)
[2021-09-03 06:00] VITALS: BP 148/80
[2021-09-03] MEDS: HEPARIN SOD (PORCINE) 5000UNITS/ML 1ML VIAL/SYRINGE SC SCH ×2 (08:21→20:19)
[2021-09-03] MEDS: LACTOBACILLUS ACIDOPHILUS CAP (BACID) PO SCH ×2 (08:21→18:08)
[2021-09-03] MEDS: SENNA 8.6 MG TAB (SENOKOT) PO SCH ×2 (08:21→20:19)
[2021-09-03] MEDS: DIMETHICONE 2% OINTMENT(VANICREAM) 70GM TUBE TOP SCH (08:22)
[2021-09-03] MEDS: CLOTRIMAZOLE 1% TOPICAL CREAM 30GM TOP SCH (08:22)
[2021-09-03] MEDS: RAMELTEON 8 MG TAB (ROZEREM) PO PRN (20:23)
[2021-09-03 20:28] VITALS: BP 118/58
[2021-09-04 05:12] VITALS: BP 150/82
[2021-09-04] MEDS: LACTOBACILLUS ACIDOPHILUS CAP (BACID) PO SCH ×2 (08:31→17:43)
[2021-09-04] MEDS: HEPARIN SOD (PORCINE) 5000UNITS/ML 1ML VIAL/SYRINGE SC SCH ×2 (08:31→20:05)
[2021-09-04] MEDS: DIMETHICONE 2% OINTMENT(VANICREAM) 70GM TUBE TOP SCH (08:31)
[2021-09-04] MEDS: CLOTRIMAZOLE 1% TOPICAL CREAM 30GM TOP SCH (08:32)
[2021-09-04] MEDS: SENNA 8.6 MG TAB (SENOKOT) PO SCH ×2 (08:32→20:05)
[2021-09-04] MEDS ORDERED: SCOPOLAMINE 1MG TRANSDERMAL PATCH TOP PRN (15:40)
[2021-09-04] MEDS ORDERED: LORazepam 2 MG/ML VIAL IV PRN (15:40)
[2021-09-04] MEDS ORDERED: HYOSCYAMINE SULFATE 0.125 MG SUBL TABLET PO PRN (15:40)
[2021-09-04] MEDS ORDERED: ATROPINE SULFATE 1% OP SOLN 2 ML BTL SL PRN (15:40)
[2021-09-04] MEDS ORDERED: ONDANSETRON 4MG ORAL DISINTEGRATING TAB PO PRN (15:40)
[2021-09-04] MEDS ORDERED: MORPHINE 10MG/0.5ML ORAL CONCENTRATE SOLUTION U/D SL PRN (15:40)
[2021-09-04] MEDS ORDERED: ONDANSETRON 4MG/2ML VIAL IV PRN (15:40)
[2021-09-04] MEDS ORDERED: LORazepam 1 MG TAB PO PRN (15:40)
[2021-09-04] MEDS ORDERED: MORPHINE 2 MG/ML 1ML VIAL IV PRN (15:40)
[2021-09-04] MEDS: RAMELTEON 8 MG TAB (ROZEREM) PO PRN (20:05)
[2021-09-05] MEDS: ACETAMINOPHEN TAB 650MG DOSE (2X325MG) PO PRN (04:10)
[2021-09-05] MEDS: LACTOBACILLUS ACIDOPHILUS CAP (BACID) PO SCH ×2 (08:59→18:19)
[2021-09-05] MEDS: HEPARIN SOD (PORCINE) 5000UNITS/ML 1ML VIAL/SYRINGE SC SCH ×2 (08:59→20:04)
[2021-09-05] MEDS: SENNA 8.6 MG TAB (SENOKOT) PO SCH ×2 (08:59→19:43)
[2021-09-05] MEDS: CLOTRIMAZOLE 1% TOPICAL CREAM 30GM TOP SCH (09:02)
[2021-09-05] MEDS: DIMETHICONE 2% OINTMENT(VANICREAM) 70GM TUBE TOP SCH (09:03)
[2021-09-05] MEDS: RAMELTEON 8 MG TAB (ROZEREM) PO PRN (20:04)
[2021-09-06] MEDS: SENNA 8.6 MG TAB (SENOKOT) PO SCH ×2 (09:00→20:55)
[2021-09-06] MEDS: LACTOBACILLUS ACIDOPHILUS CAP (BACID) PO SCH ×2 (09:47→18:16)
[2021-09-06] MEDS: HEPARIN SOD (PORCINE) 5000UNITS/ML 1ML VIAL/SYRINGE SC SCH ×2 (09:47→20:55)
[2021-09-06] MEDS: DIMETHICONE 2% OINTMENT(VANICREAM) 70GM TUBE TOP SCH (09:48)
[2021-09-06] MEDS: ACETAMINOPHEN TAB 650MG DOSE (2X325MG) PO PRN (09:48)
[2021-09-06] MEDS: CLOTRIMAZOLE 1% TOPICAL CREAM 30GM TOP SCH (09:48)
[2021-09-06] MEDS: RAMELTEON 8 MG TAB (ROZEREM) PO PRN (20:56)
[2021-09-07] MEDS: LACTOBACILLUS ACIDOPHILUS CAP (BACID) PO SCH ×2 (08:30→17:46)
[2021-09-07] MEDS: HEPARIN SOD (PORCINE) 5000UNITS/ML 1ML VIAL/SYRINGE SC SCH ×2 (08:30→20:49)
[2021-09-07] MEDS: SENNA 8.6 MG TAB (SENOKOT) PO SCH ×2 (08:30→20:49)
[2021-09-07] MEDS: CLOTRIMAZOLE 1% TOPICAL CREAM 30GM TOP SCH ×2 (08:31→09:00)
[2021-09-07] MEDS: DIMETHICONE 2% OINTMENT(VANICREAM) 70GM TUBE TOP SCH ×2 (08:31→09:00)
[2021-09-07] MEDS: ACETAMINOPHEN TAB 650MG DOSE (2X325MG) PO PRN (08:32)
[2021-09-07] MEDS: RAMELTEON 8 MG TAB (ROZEREM) PO PRN (20:49)
[2021-09-08] MEDS: LACTOBACILLUS ACIDOPHILUS CAP (BACID) PO SCH ×2 (09:54→17:37)
[2021-09-08] MEDS: DIMETHICONE 2% OINTMENT(VANICREAM) 70GM TUBE TOP SCH (09:55)
[2021-09-08] MEDS: HEPARIN SOD (PORCINE) 5000UNITS/ML 1ML VIAL/SYRINGE SC SCH (09:55)
[2021-09-08] MEDS: CLOTRIMAZOLE 1% TOPICAL CREAM 30GM TOP SCH (09:56)
[2021-09-08] MEDS: SENNA 8.6 MG TAB (SENOKOT) PO SCH (09:56)
[2021-09-09] MEDS: SENNA 8.6 MG TAB (SENOKOT) PO SCH ×3 (00:06→20:49)
[2021-09-09] MEDS: RAMELTEON 8 MG TAB (ROZEREM) PO PRN ×2 (00:06→20:51)
[2021-09-09] MEDS: LACTOBACILLUS ACIDOPHILUS CAP (BACID) PO SCH ×2 (10:17→18:31)
[2021-09-09] MEDS: CLOTRIMAZOLE 1% TOPICAL CREAM 30GM TOP SCH (10:19)
[2021-09-09] MEDS: DIMETHICONE 2% OINTMENT(VANICREAM) 70GM TUBE TOP SCH (10:19)
[2021-09-10] MEDS: SENNA 8.6 MG TAB (SENOKOT) PO SCH ×2 (08:30→20:18)
[2021-09-10] MEDS: DIMETHICONE 2% OINTMENT(VANICREAM) 70GM TUBE TOP SCH (08:30)
[2021-09-10] MEDS: LACTOBACILLUS ACIDOPHILUS CAP (BACID) PO SCH ×2 (08:30→17:34)
[2021-09-10] MEDS: CLOTRIMAZOLE 1% TOPICAL CREAM 30GM TOP SCH (08:30)
[2021-09-10] MEDS: RAMELTEON 8 MG TAB (ROZEREM) PO PRN (20:18)
[2021-09-11] MEDS: LACTOBACILLUS ACIDOPHILUS CAP (BACID) PO SCH (07:58)
[2021-09-11] MEDS: SENNA 8.6 MG TAB (SENOKOT) PO SCH (07:58)
[2021-09-11] MEDS: CLOTRIMAZOLE 1% TOPICAL CREAM 30GM TOP SCH (07:59)
[2021-09-11] MEDS: DIMETHICONE 2% OINTMENT(VANICREAM) 70GM TUBE TOP SCH (07:59)
[2021-09-11] MEDS ORDERED: ACET-907 PO (11:13)
== END 2021-09-11 12:31 | disposition home health service (06) | DRG 689 ==
LOC: M ED 16:10 → EDBD 16:10 → M ED INP 21:46 → M MSPAV 22:47
PROVIDERS: ADMIT Internal Medicine; ATTEND Internal Medicine Nephrology
PROC: B246ZZ4 Ultrasonography of Right and Left Heart, Transesophageal (ICD-10-PCS; principal; 2021-08-26 17:00)
DX: N39.0 Urinary tract infection, site not specified (principal); G93.41 Metabolic encephalopathy; R78.81 Bacteremia; E87.2 Acidosis; I50.32 Chronic diastolic (congestive) heart failure; F02.80 Dementia in other diseases classified elsewhere, unspecified severity, without behavioral disturbance, psychotic disturbance, mood disturbance, and anxiety; E21.3 Hyperparathyroidism, unspecified; G30.9 Alzheimer's disease, unspecified; B95.61 Methicillin susceptible Staphylococcus aureus infection as the cause of diseases classified elsewhere; R00.1 Bradycardia, unspecified; M48.00 Spinal stenosis, site unspecified; K59.00 Constipation, unspecified; E78.5 Hyperlipidemia, unspecified; I44.0 Atrioventricular block, first degree; E16.2 Hypoglycemia, unspecified; G35 Multiple sclerosis; I11.0 Hypertensive heart disease with heart failure; G25.81 Restless legs syndrome; G47.00 Insomnia, unspecified; Z51.5 Encounter for palliative care; Z88.8 Allergy status to other drugs, medicaments and biological substances; Z79.899 Other long term (current) drug therapy